=== PATIENT | male | born 1965 | race Caucasian/White ===

== ENCOUNTER 2023-11-16 19:48 | Emergency (ER) | payer BC, SELFPAY ==
[2023-11-16 19:50] VITALS: BP 141/80
--- NOTE | 2023-11-16 19:59 | ED.GENMED ---
History of Present Illness
General
Chief Complaint: Musculo-Skeletal Complaint
Time Seen by Provider: 11/16/23 19:58
Travel History
Have you had any contact with someone who has COVID-19?: No
Do you have any symptoms of coronavirus? Fever > 100 degrees, chills, cough, shortness of breath, sore throat, loss of taste or smell, muscle aches, or headache?: No
History of Present Illness
History of Present Illness:
HPI: Patient presents due to right shoulder pain. He has had arthroscopies of both shoulders in the past and states he has had loose foreign body that had to be 'cut out'. He has been having increasing pain throughout the day today. Of note he
did take down a tree yesterday with rope and that may be contributing factor. However he did not have significant pain at the time. He has tremendous difficulty with abducting at the right shoulder.
EXAM:
GENERAL: Well appearing in mild distress
HEENT: Moist oral mucosa
NEUROLOGIC: Excellent strength all extremities, no coordination deficits
PSYCHIATRIC: Appropriate mental status, normal insight and judgement
EXTREMITIES: There is markedly decreased active range of motion to abduction at the right shoulder, there is increased pain with internal rotation, there is no tenderness at the right AC joint, there is minimal discomfort to palpation of the right
bicipital region proximally
SKIN: No rash, no lesions
ED COURSE:
8 o'clock p.m.: I initially evaluated
NUMBER AND COMPLEXITY OF PROBLEMS ADDRESSED AT THE ENCOUNTER
� Chronic conditions affecting care: The patient had a left nephrectomy (donated kidney), has had shoulder surgery in the past, high blood pressure
� Acute Exacerbation and/or Progression of Chronic Illness: Has had bilateral shoulder pathology in the
� Differential Diagnosis includes: Rotator cuff disease, AC sprain, muscle strain
AMOUNT AND/OR COMPLEXITY OF DATA TO BE REVIEWED AND ANALYZED
� I performed an independent evaluation of and my interpretation is:
EKG:
CT:
X-rays: I personally viewed x-ray of the right shoulder, there is some degenerative disease and there is some increased joint space widening between the glenoid and the proximal humerus/possible slight subluxation inferiorly
Laboratory Studies:
Other:
� Review of other/old records: Old x-rays reviewed
� Clinical information was obtained by an independent historian: I spoke to the at bedside
� Prescriptions/Medications Considered but not given: Consider Dilaudid as this has helped him in the past for another issue
� Further testing considered but not performed: No clear indication for MRI at this point but will be seeing orthopedics tomorrow
RISK OF COMPLICATIONS AND/OR MORBIDITY OR MORTALITY OF PATIENT MANAGEMENT
� Social determinants of health affecting care: Lives at home
� Discussion with other providers:
� Escalation of care including admission/observation vs risk of discharge considered: The patient already took Vicodin earlier today�he has 5 mg hydrocodone at home. He has follow-up with his orthopedist at [place] tomorrow.
We will switch from Vicodin to Percocet, he has a sling at home.
Past History
Past History
ED Past Medical History: HTN, Other (DDD with herniated disc L4-L5) and Other (arthritis, kidney donor)
ED Past Surgical History: Other (kidney donor, ?vein stripping,hernia repair)
Social History
Tobacco: Former smoker
Alcohol: Occasional
Drug: None
Personal:
Living: with family
Employment: Employed
Phy Exam
Physical Exam
Physical Exam:
See HPI
Course
Orders/Labs/Results
Orders:
Orders
11/16/23 19:56
Shoulder, Right, Trauma [CR Shoulder, Trauma - Right] Urgent
Comment:
Reason For Exam: pain
11/16/23 20:24
Oxycodone/Acetaminophen [Percocet 5/325] 2 tablet PO NOW STA
Vital Signs
Initial and Last Documented VS:
Initial Vital Signs
Temp Pulse Resp BP Pulse Ox
98.2 F 63 20 141/80 97
11/16/23 19:50 11/16/23 19:50 11/16/23 19:50 11/16/23 19:50 11/16/23 19:50
Last Documented Vital Signs
Temp Pulse Resp BP Pulse Ox
98.2 F 63 20 141/80 97
11/16/23 19:50 11/16/23 19:50 11/16/23 19:50 11/16/23 19:50 11/16/23 19:50
*Critical Care Note
Total Time (30-74mins, 75-104mins- exclusive of procedures): Not Applicable
ED Attending Note
-
Portions of this chart may have been created with voice recognition software.� Occasional wrong word or��sound alike� substitutions may have occurred due to the inherent limitations of voice recognition software.
Discharge Plan
Departure
Patient Disposition: Home (Routine Discharge)
Date of Disposition: 11/16/23
Time of Disposition: 20:23
Patient with high blood pressure during this ER visit?: Yes
Discharge Problem:
Acute pain of right shoulder
Instructions: Rotator cuff injury, How to Use a Shoulder Sling
Prescriptions:
New
oxycodone-acetaminophen [Percocet] 5-325 mg tablet
1 - 2 tab PO Q8H PRN (Reason: Pain) Qty: 14 0RF
No Action
Lisinopril
10 mg PO DAILY
oxycodone-acetaminophen 5 MG/325 MG tablet
1 tab PO Q4HPRN PRN (Reason: pain) Qty: 9 0RF
diazepam [Valium] 5 mg tablet
5 mg PO TID PRN (Reason: muscle spasm) Qty: 20 0RF
Activity Restrictions/Additional Instructions:
Follow-up with your orthopedist tomorrow and take your disc with you. If you take the Percocet, you cannot take Vicodin. If you do take Percocet, consider take MiraLAX to help event constipation. I also recommend using the sling.
Interventions
Interventions:
*General Assessment Last Done: 11/16/23 19:50
*Neglect/Abuse Screening Last Done: 11/16/23 19:50
ED- Fall Risk Assessment Last Done: 11/16/23 19:50
*ED COVID-19 Vaccine History Last Done: 11/16/23 19:50
[2023-11-16] MEDS: PERCOCET 5/325 2 TABLET PO (20:31)
== END 2023-11-16 20:43 | disposition home or self-care (01) ==
LOC: EMR 19:48
PROVIDERS: EMERGENCY PHYSICIAN Emergency Medicine; FAMILY PHYSICIAN Registered Nurse
DX: M25.511 Pain in right shoulder (principal); I10 Essential (primary) hypertension; Z87.891 Personal history of nicotine dependence
CPT/HCPCS: 99283; 73030

== ENCOUNTER → 2024-01-17 06:53 | Outpatient (REF) | payer BC, SELFPAY | LOC: HWRAD 06:53 | PROVIDERS: ATTENDING PHYSICIAN Family Medicine | DX: R59.1 Generalized enlarged lymph nodes (principal) | CPT/HCPCS: 76536 ==

== ENCOUNTER 2024-01-22 19:26 | Emergency (ER) | payer BC, SELFPAY ==
[2024-01-22 19:31] VITALS: BP 120/77
--- NOTE | 2024-01-22 20:53 | ED.GENMED ---
History of Present Illness
<LASHAE Lopez - Last Filed: 01/25/24 13:12>
General
Chief Complaint: Musculo-Skeletal Complaint
Source: patient
Exam Limitations: none
Time Seen by Provider: 01/22/24 20:51
Nursing documentation reviewed up to this point in time: agreed with
Travel History
Have you had any contact with someone who has COVID-19?: No
Do you have any symptoms of coronavirus? Fever > 100 degrees, chills, cough, shortness of breath, sore throat, loss of taste or smell, muscle aches, or headache?: No
History of Present Illness
History of Present Illness:
Patient is a 58-year-old male presents to the ER complaining of right ankle pain. Patient has a history of having a right ankle replacement by Dr. Sherwin Lui in 2021. This pain started spontaneously last night. He states he is in severe pain
unable to bear any weight. He does have the chills he denies any actual new swelling. He denies any new injury. He cannot walk on this at all.
Past History
<LASHAE Lopez - Last Filed: 01/25/24 13:12>
Past History
ED Past Medical History: HTN, Other (DDD with herniated disc L4-L5) and Other (arthritis, kidney donor)
ED Past Surgical History: Other (kidney donor, ?vein stripping,hernia repair)
Social History
Tobacco: Former smoker
Alcohol: Occasional
Drug: None
Personal:
Living: with family
Employment: Employed
Review of Systems
<LASHAE Lopez - Last Filed: 01/25/24 13:12>
Review of Systems
Allergies reviewed?: Yes
All Other Systems: ROS reviewed and negative except as documented in HPI and ROS
Constitutional: Reports chills; Denies fever
Respiratory: Reports no symptoms
Cardiac: Reports no symptoms
ABD/GI: Reports no symptoms
Musculoskeletal: Reports other (Right ankle pain)
Phy Exam
<LASHAE Lopez - Last Filed: 01/25/24 13:12>
General Physical Exam
General Presentation: no apparent distress
General age: appears stated age
General Skin: warm and dry
General Habitus: normal
General Mental: alert
General Hydration: appears well hydrated
Neurological Exam
Neurological Exam: alert
[place] Coma Scale
Eye Opening: Spontaneous
Verbal Response: Oriented
Motor Response: Obeys Commands
GCS Total Score: 15
Musculoskeletal Exam
Musculoskeletal Exam: other (rle with strong pulses + swelling to right ankle no erythema no warmth tender throughout no calf tenderness or swelling )
Skin Exam
Skin Exam: normal color and warm/dry
Psychiatric Exam
Psychiatric Exam: normal mood/affect
Course
<LASHAE Lopez - Last Filed: 01/25/24 13:12>
Orders/Labs/Results
Orders:
Orders
01/22/24 19:40
Ankle, Right 3 view CR [CR Ankle - Right Min 3 Views *] Urgent
Comment:
Reason For Exam: pain, swelling
01/22/24 21:05
IV Insert/Care/Rem.- Treatment PRN
01/22/24 21:06
HYDROmorphone [Dilaudid] 1 mg IV NOW STA
01/22/24 22:16
CRP [C-Reactive Protein] Urgent
Comprehensive Metabolic Panel Urgent
01/22/24 22:17
Complete Blood Count/With Diff Urgent
Sed Rate [Erythrocyte Sed Rate] Urgent
01/23/24 00:35
HYDROmorphone [Dilaudid] 1 mg IV NOW STA
01/23/24 01:20
Lactic Acid Urgent
Blood Culture Q30M
UDAY Source: Blood/Venous
Specimen Description:
01/23/24 01:24
Blood Culture Q30M
UDAY Source: Blood/Venous
Specimen Description:
01/23/24 03:24
HYDROmorphone [Dilaudid] 1 mg .ROUTE .STK-MED ONE
01/23/24 03:27
HYDROmorphone [Dilaudid] 1 mg IV NOW STA
01/23/24 04:53
Ketorolac [Toradol] 30 mg .ROUTE .STK-MED ONE
01/23/24 04:54
Ketorolac [Toradol] 30 mg IV NOW STA
01/23/24 06:54
Case Management Consult ONCE
Case Management Consult: Other
01/23/24 08:20
HYDROmorphone [Dilaudid] 1 mg .ROUTE .STK-MED ONE
01/23/24 08:22
HYDROmorphone [Dilaudid] 1 mg IV NOW STA
01/23/24 09:18
HYDROmorphone [Dilaudid] 1 mg IV NOW STA
01/23/24 11:07
HYDROmorphone [Dilaudid] 1 mg IV NOW STA
Abnormal Lab Results
01/22/24 01/22/24
22:16 22:17
WBC 14.9 H 10^3/uL
(4.8-10.8)
MCV 79.1 L fL
(80.0-94.0)
Abs Immat Gran (auto) 0.1 H 10^3/uL
(0-0.05)
Absolute Neuts (auto) 12.4 H 10^3/uL
(1.4-6.5)
Absolute Lymphs (auto) 1.0 L 10^3/uL
(1.2-3.4)
Absolute Monos (auto) 1.4 H 10^3/uL
(0.1-0.6)
Neutrophils % 83.4 H %
(42.2-75.2)
Lymphocytes % 6.4 L %
(20.5-51.1)
Sodium 127 L mmol/L
(135-145)
Chloride 97 L mmol/L
(98-107)
BUN 25 H mg/dl
(9-20)
Glucose 134 H mg/dl
(70-99)
C-Reactive Protein 31.70 H mg/L
(0.0-10.00)
01/22/24 22:17
01/22/24 22:16
Vital Signs
Initial and Last Documented VS:
Initial Vital Signs
Temp Pulse Resp BP Pulse Ox
98.4 F 91 20 120/77 97
01/22/24 19:31 01/22/24 19:31 01/22/24 19:31 01/22/24 19:31 01/22/24 19:31
Last Documented Vital Signs
Temp Pulse Resp BP Pulse Ox
98.2 F 86 16 119/67 97
01/23/24 09:56 01/23/24 11:14 01/23/24 11:14 01/23/24 11:14 01/23/24 11:14
Swimming Pool Maintenance consulted with Physician
Swimming Pool Maintenance consulted with physician?: Yes
Name of Physician Consulted: conner
Kelilt;Tyler Roa DO - Last Filed: 01/22/24 21:44>
Orders/Labs/Results
Orders:
Orders
01/22/24 19:40
Ankle, Right 3 view CR [CR Ankle - Right Min 3 Views *] Urgent
Comment:
Reason For Exam: pain, swelling
01/22/24 21:05
IV Insert/Care/Rem.- Treatment PRN
01/22/24 21:06
HYDROmorphone [Dilaudid] 1 mg IV NOW STA
01/22/24 22:16
CRP [C-Reactive Protein] Urgent
Comprehensive Metabolic Panel Urgent
01/22/24 22:17
Complete Blood Count/With Diff Urgent
Sed Rate [Erythrocyte Sed Rate] Urgent
01/23/24 00:35
HYDROmorphone [Dilaudid] 1 mg IV NOW STA
01/23/24 01:20
Lactic Acid Urgent
Blood Culture Q30M
UDAY Source: Blood/Venous
Specimen Description:
01/23/24 01:24
Blood Culture Q30M
UDAY Source: Blood/Venous
Specimen Description:
01/23/24 03:24
HYDROmorphone [Dilaudid] 1 mg .ROUTE .STK-MED ONE
01/23/24 03:27
HYDROmorphone [Dilaudid] 1 mg IV NOW STA
01/23/24 04:53
Ketorolac [Toradol] 30 mg .ROUTE .STK-MED ONE
01/23/24 04:54
Ketorolac [Toradol] 30 mg IV NOW STA
01/23/24 06:54
Case Management Consult ONCE
Case Management Consult: Other
01/23/24 08:20
HYDROmorphone [Dilaudid] 1 mg .ROUTE .STK-MED ONE
01/23/24 08:22
HYDROmorphone [Dilaudid] 1 mg IV NOW STA
01/23/24 09:18
HYDROmorphone [Dilaudid] 1 mg IV NOW STA
01/23/24 11:07
HYDROmorphone [Dilaudid] 1 mg IV NOW STA
Abnormal Lab Results
01/22/24 01/22/24
22:16 22:17
WBC 14.9 H 10^3/uL
(4.8-10.8)
MCV 79.1 L fL
(80.0-94.0)
Abs Immat Gran (auto) 0.1 H 10^3/uL
(0-0.05)
Absolute Neuts (auto) 12.4 H 10^3/uL
(1.4-6.5)
Absolute Lymphs (auto) 1.0 L 10^3/uL
(1.2-3.4)
Absolute Monos (auto) 1.4 H 10^3/uL
(0.1-0.6)
Neutrophils % 83.4 H %
(42.2-75.2)
Lymphocytes % 6.4 L %
(20.5-51.1)
Sodium 127 L mmol/L
(135-145)
Chloride 97 L mmol/L
(98-107)
BUN 25 H mg/dl
(9-20)
Glucose 134 H mg/dl
(70-99)
C-Reactive Protein 31.70 H mg/L
(0.0-10.00)
01/22/24 22:17
01/22/24 22:16
Vital Signs
Initial and Last Documented VS:
Initial Vital Signs
Temp Pulse Resp BP Pulse Ox
98.4 F 91 20 120/77 97
01/22/24 19:31 01/22/24 19:31 01/22/24 19:31 01/22/24 19:31 01/22/24 19:31
Last Documented Vital Signs
Temp Pulse Resp BP Pulse Ox
98.2 F 86 16 119/67 97
01/23/24 09:56 01/23/24 11:14 01/23/24 11:14 01/23/24 11:14 01/23/24 11:14
<LASHAE Lopez - Last Filed: 01/25/24 13:12>
MDM/Problems Addressed
Differential Diagnosis Includes:
Not limited to infection, arthritis, gout
MDM/Problems Addressed:
Patient is a 58-year-old male status post right ankle total replacement in [address] Rivera Lui at [facility]. Patient complains of sudden pain since last night and swelling to the right ankle area. No fevers. Patient
Presents with strong pulses to right lower extremity ankle is swollen and tender throughout there is no erythema or warmth however. Case reviewed with ED physician Dr. Roa who evaluated patient labs were checked including white count which is
elevated to 14.9 CRP is elevated at 31.7 and sed rate is normal. Sodium mildly low at 127.
Case discussed with Dr. Porras our orthopedic physician who does recommend that we reach out to patient's orthopedic group at [facility]. I spoke with Dr. Jignesh Whyte ([facility] ) via tiger text who does suggest the patient be discharged
from our ER and sent to [facility] ER however after discussing with ED physician at [facility] DR Moseley recommend direct admission .
I did attempt to contact DR hWyte several additional times without response. I spoke with Yana nursing supervisor fabrication department at [facility] and patient will need to be be approved for transfer by case management which cannot happen until at least 7am.
Will keep patient here in our ER tonight until patient approved for transfer tomorrow morning. Will continue to medicate as needed. Will hold off on antibiotics. Patient and made aware of plan. Dr Adhikari at this time 0120 aware of plan.
<LASHAE Lopez - Last Filed: 01/25/24 13:12>
*Critical Care Note
Total Time (30-74mins, 75-104mins- exclusive of procedures): Not Applicable
ED Attending Note
<LASHAE Lopez - Last Filed: 01/25/24 13:12>
-
Portions of this chart may have been created with voice recognition software.� Occasional wrong word or��sound alike� substitutions may have occurred due to the inherent limitations of voice recognition software.
<Tyler Roa DO - Last Filed: 01/22/24 21:44>
ED Attending Note
Patient seen and examined by attending physician: Yes
I performed the substantive portion of visit, reviewed & personally made and approve the management plan that is documented in note by myself or SHARATH.: Yes
ED Attending Note:
I have reviewed Araceli's note.
Pt c/o right ankle pain. Pt has had a 'joint replacement' of this ankle in 2021. No fever, chills. Pt rates pain as severe and that he needs Dilaudid. He took two oxycodone earlier today w/o relief. Pt denies trauma. Pt states the ankle is
persistently swollen since the ankle surgery. No hx of gout.
Right ankle very tender palpation diffusely. No erythema or significant warmth. Pulses are brisk as is cap refill.
ankle x-ray--> read by radiology as no acute disease.
Labs ordered including crp and sed rate.
Diff dx includes osteoarthritis flare, lose hardware, septic joint (doubt).
Discharge Plan
Departure
Patient Disposition: Acute Care Hospital
Date of Disposition: 01/23/24
Time of Disposition: 09:56
Discharge Problem:
Cellulitis
Prescriptions:
No Action
Lisinopril
10 mg PO DAILY
oxycodone-acetaminophen 5 MG/325 MG tablet
1 tab PO Q4HPRN PRN (Reason: pain) Qty: 9 0RF
diazepam [Valium] 5 mg tablet
5 mg PO TID PRN (Reason: muscle spasm) Qty: 20 0RF
oxycodone-acetaminophen [Percocet] 5-325 mg tablet
1 - 2 tab PO Q8H PRN (Reason: Pain) Qty: 14 0RF
Referrals:
Fredy Rahman Jr., [Family Provider] -
Hospital Transfer
Other hospital: [facility]
I certify that the patient requires transfer: Yes
Discussed case with accepting physician: Dr. Whyte
Reason for transfer: availability of service and continuity of care PCP
Interventions
Interventions:
*Risk Screen - Suicide Last Done: 01/22/24 19:31
*General Assessment Last Done: 01/22/24 19:31
*Neglect/Abuse Screening Last Done: 01/22/24 19:31
ED- Fall Risk Assessment Last Done: 01/22/24 19:31
*ED COVID-19 Vaccine History Last Done: 01/22/24 19:31
*Nursing Disposition Last Done: 01/23/24 11:15
ED- Cardiac Assessment Last Done: 01/22/24 22:22
ED-Musculoskeletal Assessment Last Done: 01/22/24 22:23
ED- Pulmonary Assessment Last Done: 01/22/24 22:22
ED-Skin Assessment Last Done: 01/22/24 22:23
Discharge Date and Time
Discharge Date/Time: 01/23/24 11:17
Print Language: CAP[place]
[2024-01-22] MEDS: DILAUDID 1 MG IV (22:17)
[2024-01-22 22:28] VITALS: BMI 26.5
[2024-01-22 22:31] LABS: % Basophils 0.3 % (0-2); % Eosinophils 0.5 % (0-6); % Immature Granulocytes 0.3 % (0-0.5); % Lymphocytes 6.4 % (20.5-51.1); % Monocytes 9.1 % (1.7-9.3); % Neutrophils 83.4 % (42.2-75.2); Absolute Basophils 0.1 10^3/uL (0-0.2); Absolute Eosinophils 0.1 10^3/uL (0-0.7); Absolute Immature Granulocytes 0.1 10^3/uL (0-0.05); Absolute Monocytes 1.4 10^3/uL (0.1-0.6); Absolute Neutrophils 12.4 10^3/uL (1.4-6.5); Hematocrit 40.1 % (39.0-52.0); Hemoglobin 13.9 g/dL (13.0-18.0); Mean Corp Hgb Conc. 34.7 g/dL (33.0-37.0); Mean Corpuscular Hgb 27.4 pg (27.0-31.0); Mean Corpuscular Volume 79.1 fL (80.0-94.0); Mean Platelet Volume 9.4 fL (7.4-10.4); Nucleated Red Blood Cells % 0 % (-); Platelet Count 244 10^3/uL (130-400); Red Blood Cell Count 5.07 10^6/uL (4.70-6.10); Red Cell Dist. Width 13.3 % (11.5-14.5); White Blood Cell Count 14.9 10^3/uL (4.8-10.8)
[2024-01-22 22:45] LABS: Erythrocyte Sed Rate 17 mm/hour (0-20)
[2024-01-22 22:54] LABS: ALT (SGPT) 28 U/L (0-50); AST (SGOT) 33 U/L (17-59); Albumin 3.8 g/dl (3.5-5.0); Alkaline Phosphatase 125 U/L (38-126); Blood Urea Nitrogen 25 mg/dl (9-20); Calcium 9.2 mg/dl (8.4-10.2); Carbon Dioxide 27 mmol/L (22-30); Chloride 97 mmol/L (98-107); Estimated Creatinine Clearance 124 ml/min; Glucose 134 mg/dl (70-99); Potassium 4.5 mmol/L (3.5-5.1); Sodium 127 mmol/L (135-145); Total Bilirubin 0.5 mg/dl (0.2-1.3); Total Protein 6.7 g/dl (6.3-8.2); eGFR > 60.00
[2024-01-23] MEDS: DILAUDID 1 MG IV ×5 (00:38→11:09)
[2024-01-23 00:44] VITALS: BP 101/84
[2024-01-23 01:42] LABS: Lactic Acid 1.3 mmol/L (0.7-2.0)
[2024-01-23] MEDS: TORADOL 30 MG IV (04:55)
--- NOTE | 2024-01-23 08:45 | CM ---
Addendum entered by Matilda Michel RN 01/23/24 10:55:
CM was updated by ED loading unit tool setter that patient will be transferred to [facility] for a direct admission.
Original Note:
CM was consulted to assist with transfer as a direct admission to [facility]. Plan for ED UC to call nursing supervisor [employer] to discuss direct admission process at [facility]. CM will await further information.
[2024-01-23 08:59] VITALS: BP 103/65
[2024-01-23 11:14] VITALS: BP 119/67
== END 2024-01-23 11:17 | disposition short-term general hospital (02) ==
LOC: EMR 19:26
PROVIDERS: Nurse Practitioner; EMERGENCY PHYSICIAN Emergency Medicine; FAMILY PHYSICIAN Family Medicine
DX: L03.115 Cellulitis of right lower limb (principal); I10 Essential (primary) hypertension; M51.36 Other intervertebral disc degeneration, lumbar region; Z87.891 Personal history of nicotine dependence; Z96.661 Presence of right artificial ankle joint
CPT/HCPCS: 99283; 96374 ×2; 96375; 96376; 73610; 80053; 83605; 85025; 85652; 86140; 87040

== ENCOUNTER 2024-02-17 19:55 | Emergency (ER) | payer BC, SELFPAY ==
[2024-02-17 19:57] VITALS: BP 152/78
--- NOTE | 2024-02-17 20:27 | ED.GENMED ---
History of Present Illness
General
Chief Complaint: Musculo-Skeletal Complaint
Source: patient and spouse
Time Seen by Provider: 02/17/24 20:10
Travel History
Have you had any contact with someone who has COVID-19?: No
Do you have any symptoms of coronavirus? Fever > 100 degrees, chills, cough, shortness of breath, sore throat, loss of taste or smell, muscle aches, or headache?: No
History of Present Illness
History of Present Illness:
This patient is a 58-year-old male presents emergency department with neck pain that started a few days ago. At that time, he states that it felt like a 'pulsing' feeling 'like I needed a massage', described as feeling like it was in the muscles.
Since that time, the pain has gotten gradually worse such that he is very uncomfortable to move his head in any direction. This was not sudden onset and he denies associated fever, chills, nausea, vomiting, chest pain, dyspnea, numbness, tingling,
weakness, recent fall or trauma. Patient was recently diagnosed with ankle osteomyelitis and is currently receiving IV antibiotics. He has been sleeping in a hospital bed and using his scooter which is very uncomfortable and he suspects that he
has suffered neck strain as a result. He denies headache, chest pain, trouble swallowing, or other complaints.
Past History
Past History
ED Past Medical History: HTN, Other (DDD with herniated disc L4-L5) and Other (arthritis, kidney donor)
ED Past Surgical History: Other (kidney donor, ?vein stripping,hernia repair)
Social History
Tobacco: Former smoker
Alcohol: Occasional
Drug: None
Personal:
Living: with family
Employment: Employed
Phy Exam
Physical Exam
Physical Exam:
GENERAL: Alert , in no apparent distress
EYE: pupils equal and reactive
NECK: Supple, no significant adenopathy, trachea midline, no bruit, no swelling or bruising noted, no midline tenderness to palpation. He has obvious limitation of range of motion due to discomfort. No skin changes noted. He describes 'pulsing'
feeling with palpation across superior trapezius/lower neck area.
ENT: o/p clr, mmm.
CARDIAC: Regular rate and rhythm .
LUNGS: Clear breath sounds bilaterally, no acute respiratory distress, no wheezes/rales/rhonchi
ABDOMEN: Soft, without focal tenderness, no r/g, no cvat
NEUROLOGICAL: Alert and oriented, no focal neuro deficits, motor 5 out of 5, sensory intact, cranial nerves II through XII intact
SKIN: Warm and dry, skin intact.
MUSCULOSKELETAL: No edema, well perfused. Right foot in a boot
PSYCH: Normal and appropriate interaction.
Course
Orders/Labs/Results
Orders:
Orders
02/17/24 20:25
Cardiac Monitoring- Treatment ONCE
HYDROmorphone [Dilaudid] 1 mg IV NOW STA
02/17/24 20:38
CRP [C-Reactive Protein] Urgent
Complete Blood Count/With Diff Urgent
Comprehensive Metabolic Panel Urgent
ESR [Erythrocyte Sed Rate] Urgent
Blood Culture Urgent
UDAY Source: Blood/Venous
Specimen Description:
02/17/24 21:12
CT Neck W/o Iv Contrast Urgent
Comment:
Reason For Exam: NECK PAIN
diazePAM [Valium Injection] 5 mg IV NOW STA
02/17/24 22:18
HYDROmorphone [Dilaudid] 1 mg IV NOW STA
Ketorolac [Toradol] 15 mg IV NOW STA
02/18/24 00:04
Oxycodone [Roxicodone] 5 mg .ROUTE .STK-MED ONE
Abnormal Lab Results
02/17/24
20:38
WBC 12.7 H 10^3/uL
(4.8-10.8)
Hgb 12.8 L g/dL
(13.0-18.0)
Hct 37.1 L %
(39.0-52.0)
MCV 78.9 L fL
(80.0-94.0)
Abs Immat Gran (auto) 0.1 H 10^3/uL
(0-0.05)
Absolute Neuts (auto) 8.7 H 10^3/uL
(1.4-6.5)
Absolute Monos (auto) 1.1 H 10^3/uL
(0.1-0.6)
Absolute Eos (auto) 0.8 H 10^3/uL
(0-0.7)
Lymphocytes % 15.7 L %
(20.5-51.1)
Eosinophils % 6.4 H %
(0-6)
ESR 25 H mm/hour
(0-20)
Sodium 133 L mmol/L
(135-145)
BUN 30 H mg/dl
(9-20)
Glucose 122 H mg/dl
(70-99)
02/17/24 20:38
02/17/24 20:38
Vital Signs
Initial and Last Documented VS:
Initial Vital Signs
Temp Pulse Resp BP Pulse Ox
97.9 F 89 18 152/78 92
02/17/24 19:57 02/17/24 19:57 02/17/24 19:57 02/17/24 19:57 02/17/24 19:57
Last Documented Vital Signs
Temp Pulse Resp BP Pulse Ox
97.9 F 74 18 116/77 93
02/17/24 19:57 02/17/24 22:45 02/17/24 19:57 02/17/24 23:00 02/17/24 23:00
*Critical Care Note
Total Time (30-74mins, 75-104mins- exclusive of procedures): Not Applicable
Update Note
Update Note:
Patient presents to the Emergency Department with ___neck pain
Number and Complexity of Problems Addressed at the Encounter
� Chronic conditions affecting care:
� Acute Exacerbation and/or Progression of Chronic Illness:
� Differential Diagnosis includes: But not limited to arthritis, muscular strain, infection, etc. etc.
Amount and/or Complexity of Data to be Reviewed and Analyzed
� I performed an independent evaluation of and my interpretation is:
EKG:
CT: Unremarkable
Xrays:
Laboratory Studies: Slight leukocytosis with slight ESR elevation
Other:
� Review of other/old records reveals:
� Clinical information was obtained by an independent historian: who is bedside
� Prescriptions/Medications Considered but not given:
� Further testing considered but not performed:
Risk of Complications and/or Morbidity or Mortality of Patient Management
� Social determinants of health affecting care:
� Discussion with other providers (PCP, Hospitalists, Consultants, etc):
� Escalation of care including admission/observation vs risk of discharge considered: 9:16 PM Dilaudid has only helped his pain moderately. He is reporting feeling like it hurts more in the back of his neck when he swallows.
His speech is clear, he ate dinner before coming here, he is tolerating secretions, no change in voice, etc. CT ordered.
11:44 PM patient's symptoms are significantly better, he is smiling, he is able to nod yes and no, and reports feeling much better. No airway involvement voice change drooling etc. No swelling noted. Slight white blood cell count elevation noted,
may be related to pain. Nonspecific mild sed rate elevation CRP is normal. Overall, while possible I think extremely unlikely the patient has an infectious source of his neck pain such as osteo/abscess. Did discuss with patient portance of
follow-up and reasons to return to the ER. More likely I suspect patient has muscular related severe pain.
ED Attending Note
-
Portions of this chart may have been created with voice recognition software.� Occasional wrong word or��sound alike� substitutions may have occurred due to the inherent limitations of voice recognition software.
Discharge Plan
Departure
Patient Disposition: Home (Routine Discharge)
Date of Disposition: 02/17/24
Time of Disposition: 23:45
Patient with high blood pressure during this ER visit?: Yes
Condition: Good
Discharge Problem:
Acute neck pain
Instructions: Neck pain, BLOOD PRESSURE
Prescriptions:
New
diazepam [Valium] 5 mg tablet
5 mg PO BID PRN (Reason: muscle spasm) Qty: 13 0RF
oxycodone 5 mg tablet
5 mg PO Q8H PRN (Reason: Pain) Qty: 21 0RF
Rx Instructions:
5-10 MG PO Q8 PRN PAIN
No Action
lisinopril 10 mg Tablet
10 mg PO HS
sildenafil 100 mg tablet
100 mg PO DAILY PRN (Reason: ed)
oxycodone 5 mg tablet
5 mg PO Q4H PRN (Reason: moderate pain)
Patient Comments:
02/17/2024: last filled 01/28/24, 30 tabs for 7 days from [facility]#2039
cefazolin 2 gram Recon Soln
2 g IV Q8H
Patient Comments:
02/17/2024: 'Infuse entire contents of syringe (2gm) via IV infusion over 3-5 minutes once every 8 hours'
Pt recieves 5ml saline flushes before and after antibiotic and a flush of heparin (5,000u?) after dose as well.
Referrals:
Delores Jernigan MD [Family Provider] - Follow up in 2-3 days
Interventions
Interventions:
*Risk Screen - Suicide Last Done: 02/17/24 20:03
*General Assessment Last Done: 02/18/24 00:14
*Neglect/Abuse Screening Last Done: 02/17/24 20:03
ED- Fall Risk Assessment Last Done: 02/17/24 21:32
*ED COVID-19 Vaccine History Last Done: 02/18/24 00:14
*Nursing Disposition Last Done: 02/18/24 00:14
ED-Musculoskeletal Assessment Last Done: 02/17/24 21:32
Discharge Date and Time
Discharge Date/Time: 02/18/24 00:15
Print Language: DIVEHI
[2024-02-17] MEDS: DILAUDID 1 MG IV ×2 (20:36→22:24)
[2024-02-17 20:48] LABS: % Basophils 0.5 % (0-2); % Eosinophils 6.4 % (0-6); % Immature Granulocytes 0.4 % (0-0.5); % Lymphocytes 15.7 % (20.5-51.1); % Monocytes 8.8 % (1.7-9.3); % Neutrophils 68.2 % (42.2-75.2); Absolute Basophils 0.1 10^3/uL (0-0.2); Absolute Eosinophils 0.8 10^3/uL (0-0.7); Absolute Immature Granulocytes 0.1 10^3/uL (0-0.05); Absolute Monocytes 1.1 10^3/uL (0.1-0.6); Absolute Neutrophils 8.7 10^3/uL (1.4-6.5); Hematocrit 37.1 % (39.0-52.0); Hemoglobin 12.8 g/dL (13.0-18.0); Mean Corp Hgb Conc. 34.5 g/dL (33.0-37.0); Mean Corpuscular Hgb 27.2 pg (27.0-31.0); Mean Corpuscular Volume 78.9 fL (80.0-94.0); Mean Platelet Volume 9.4 fL (7.4-10.4); Nucleated Red Blood Cells % 0 % (-); Platelet Count 292 10^3/uL (130-400); Red Cell Dist. Width 13.7 % (11.5-14.5); White Blood Cell Count 12.7 10^3/uL (4.8-10.8)
[2024-02-17 20:57] LABS: Erythrocyte Sed Rate 25 mm/hour (0-20)
[2024-02-17 21:09] LABS: ALT (SGPT) 11 U/L (0-50); AST (SGOT) 32 U/L (17-59); Alkaline Phosphatase 123 U/L (38-126); Blood Urea Nitrogen 30 mg/dl (9-20); Calcium 9.2 mg/dl (8.4-10.2); Carbon Dioxide 24 mmol/L (22-30); Glucose 122 mg/dl (70-99); Total Bilirubin 0.4 mg/dl (0.2-1.3); Total Protein 7.3 g/dl (6.3-8.2); eGFR > 60.00
[2024-02-17] MEDS: VALIUM INJECTION 5 MG IV (21:15)
[2024-02-17 21:27] VITALS: BP 129/80
[2024-02-17 21:27] LABS: Chloride 98 mmol/L (98-107); Potassium 4.3 mmol/L (3.5-5.1); Sodium 133 mmol/L (135-145)
[2024-02-17 21:56] VITALS: BP 142/76
[2024-02-17 22:00] VITALS: BP 127/82
[2024-02-17] MEDS: TORADOL 15 MG IV (22:24)
[2024-02-17 23:00] VITALS: BP 116/77
== END 2024-02-18 00:15 | disposition home or self-care (01) ==
LOC: EMR 19:55
PROVIDERS: EMERGENCY PHYSICIAN Emergency Medicine; FAMILY PHYSICIAN Internal Medicine
DX: M54.2 Cervicalgia (principal); I10 Essential (primary) hypertension; M51.36 Other intervertebral disc degeneration, lumbar region; M19.90 Unspecified osteoarthritis, unspecified site; Z87.891 Personal history of nicotine dependence
CPT/HCPCS: 99284; 96374; 96375; 96376; 70490; 80053; 85025; 85652; 86140; 87040

== ENCOUNTER → 2024-03-21 07:30 | Outpatient (REF) | payer BC, SELFPAY ==
[2024-03-21 10:19] LABS: % Basophils 0.9 % (0-2); % Immature Granulocytes 0.3 % (0-0.5); % Lymphocytes 25.3 % (20.5-51.1); % Monocytes 9.2 % (1.7-9.3); % Neutrophils 57.3 % (42.2-75.2); Absolute Basophils 0.1 10^3/uL (0-0.2); Absolute Eosinophils 0.5 10^3/uL (0-0.7); Absolute Lymphocytes 1.9 10^3/uL (1.2-3.4); Absolute Monocytes 0.7 10^3/uL (0.1-0.6); Absolute Neutrophils 4.4 10^3/uL (1.4-6.5); Hematocrit 42.6 % (39.0-52.0); Hemoglobin 13.9 g/dL (13.0-18.0); Mean Corp Hgb Conc. 32.6 g/dL (33.0-37.0); Mean Corpuscular Hgb 26.8 pg (27.0-31.0); Mean Corpuscular Volume 82.2 fL (80.0-94.0); Mean Platelet Volume 9.8 fL (7.4-10.4); Nucleated Red Blood Cells % 0 % (-); Platelet Count 281 10^3/uL (130-400); Red Blood Cell Count 5.18 10^6/uL (4.70-6.10); White Blood Cell Count 7.7 10^3/uL (4.8-10.8)
[2024-03-21 10:54] LABS: C-Reactive Protein < 5.00 mg/L (0.0-10.00)
[2024-03-21 11:42] LABS: Erythrocyte Sed Rate 23 mm/hour (0-20)
== END ==
LOC: HWLAB 07:30
PROVIDERS: ATTENDING PHYSICIAN Orthopaedic Surgery Foot and Ankle Surgery; FAMILY PHYSICIAN Registered Nurse
DX: Z96.661 Presence of right artificial ankle joint (principal); T84.50XA Infection and inflammatory reaction due to unspecified internal joint prosthesis, initial encounter
CPT/HCPCS: 36415; 85025; 85652; 86140

== ENCOUNTER → 2024-03-31 11:24 | Outpatient (REF) | payer BC, SELFPAY ==
[2024-03-31 15:16] LABS: % Basophils 1.2 % (0-2); % Eosinophils 7.7 % (0-6); % Immature Granulocytes 0.1 % (0-0.5); % Monocytes 10.8 % (1.7-9.3); % Neutrophils 58.2 % (42.2-75.2); Absolute Basophils 0.1 10^3/uL (0-0.2); Absolute Eosinophils 0.6 10^3/uL (0-0.7); Absolute Lymphocytes 1.7 10^3/uL (1.2-3.4); Absolute Monocytes 0.8 10^3/uL (0.1-0.6); Absolute Neutrophils 4.4 10^3/uL (1.4-6.5); Hematocrit 41.9 % (39.0-52.0); Hemoglobin 13.7 g/dL (13.0-18.0); Mean Corp Hgb Conc. 32.7 g/dL (33.0-37.0); Mean Corpuscular Hgb 26.8 pg (27.0-31.0); Mean Platelet Volume 9.7 fL (7.4-10.4); Nucleated Red Blood Cells % 0 % (-); Platelet Count 280 10^3/uL (130-400); Red Blood Cell Count 5.11 10^6/uL (4.70-6.10); Red Cell Dist. Width 13.8 % (11.5-14.5); White Blood Cell Count 7.6 10^3/uL (4.8-10.8)
[2024-03-31 15:25] LABS: Erythrocyte Sed Rate 16 mm/hour (0-20)
== END ==
LOC: HWLAB 11:24
PROVIDERS: ATTENDING PHYSICIAN Orthopaedic Surgery Foot and Ankle Surgery; FAMILY PHYSICIAN Registered Nurse
DX: Z96.661 Presence of right artificial ankle joint (principal)
CPT/HCPCS: 36415; 85025; 85652; 86140

== ENCOUNTER 2024-04-16 10:31 | Emergency (ER) | payer BC, SELFPAY ==
[2024-04-16 10:36] VITALS: BP 122/80
--- NOTE | 2024-04-16 11:31 | EDRN ---
Marta Canseco PA in room w/pt.
[2024-04-16 11:32] VITALS: BP 117/80; BMI 28.0
--- NOTE | 2024-04-16 11:36 | ED.GENMED ---
History of Present Illness
General
Chief Complaint: Musculo-Skeletal Complaint
Source: patient
Time Seen by Provider: 04/16/24 11:16
History of Present Illness
History of Present Illness:
58-year-old male with past medical history of hypertension hyperlipidemia, recent complication of a left ankle repair that became infected, presenting to the emergency department after he was trying to prevent his father from falling down 1 stair
and his father fell backwards into him causing him to fall on the ground injuring his left ring finger and left shoulder. Patient sustained no other injuries. Denies any head injury or loss consciousness. No other concerns at this time. Patient
does note previous history of injury to both shoulders and is currently in the process of getting worked up for surgical repair of both shoulders.
Past History
Past History
ED Past Medical History: HTN, Other (DDD with herniated disc L4-L5) and Other (arthritis, kidney donor)
ED Past Surgical History: Other (kidney donor, ?vein stripping,hernia repair)
Social History
Tobacco: Former smoker
Alcohol: Occasional
Drug: None
Personal:
Living: with family
Employment: Employed
Review of Systems
Review of Systems
All Other Systems: ROS reviewed and negative except as documented in HPI and ROS
Phy Exam
Physical Exam
Physical Exam:
GENERAL: Alert , in no apparent distress
EYE: conjunctiva clear
Head: Normocephalic atraumatic
NECK: Supple,
ENT: mmm.
LUNGS: no acute respiratory distress
NEUROLOGICAL: Alert and oriented
SKIN: Warm and dry, skin intact.
MUSCULOSKELETAL: Left shoulder: No obvious deformity, erythema, edema, ecchymosis, abrasions or lacerations. Patient does allow for some active and passive range of motion but does have discomfort while doing so. There is no focal areas of
tenderness. Elbow forearm and wrist without any trauma. Left hand/ring finger does have tenderness over the PIP joint with some mild soft tissue swelling. Easily palpable radial pulse. Cap refill less than 2 seconds.
PSYCH: Normal and appropriate interaction.
Scores
Heart Failure Risk
Heart Failure Risk Score: Not Applicable
Heart Score for Chest Pain Patients
STEMI patient?: Not applicable
Withdrawal Assessment of Alcohol
Withdrawal Assessment Completed?: Not applicable
Course
Orders/Labs/Results
Orders:
Orders
04/16/24 10:38
CR Shoulder, Trauma - Left Urgent
Comment:
Reason For Exam: person fell on top of him
Finger(s)/Thumb 2 View Lt [CR Finger(s)/thumb Min 2 Vw Lt] Urgent
Comment:
Reason For Exam: pain/swelling
Indicate Which Finger:: Ring Finger
Vital Signs
Initial and Last Documented VS:
Initial Vital Signs
Temp Pulse Resp BP Pulse Ox
97.7 F 82 17 122/80 95
04/16/24 10:36 04/16/24 10:36 04/16/24 10:36 04/16/24 10:36 04/16/24 10:36
Last Documented Vital Signs
Temp Pulse Resp BP Pulse Ox
97.7 F 77 16 117/80 98
04/16/24 10:36 04/16/24 11:32 04/16/24 11:32 04/16/24 11:32 04/16/24 11:32
MDM/Problems Addressed
Differential Diagnosis Includes:
Sprain, contusion, fracture, less concern for dislocation
MDM/Problems Addressed:
58-year-old male present emergency department for evaluation after he tried to catch his father from falling but instead caused him to fall on the ground himself injuring his left shoulder and ring finger. X-rays ordered from triage. There is no
evidence for shoulder fracture or dislocation on the left. There is a questionable old avulsive injury on the left index finger. Patient has a sling at home he states he can use for comfort. He was provided with a finger splint to be used as
needed. Stable for discharge home and outpatient management.
*Radiology
Radiology exam reviewed: preliminary read by ED provider (No acute fracture)
*Pulse Oximetry
Patient hypoxic: no
*Critical Care Note
Total Time (30-74mins, 75-104mins- exclusive of procedures): Not Applicable
ED Attending Note
-
Portions of this chart may have been created with voice recognition software.� Occasional wrong word or��sound alike� substitutions may have occurred due to the inherent limitations of voice recognition software.
Discharge Plan
Departure
Patient Disposition: Home (Routine Discharge)
Date of Disposition: 04/16/24
Time of Disposition: 11:36
Patient with high blood pressure during this ER visit?: No
Discharge Problem:
Left shoulder pain, Avulsion fracture of middle phalanx of finger
Instructions: Finger Fracture ED
Prescriptions:
No Action
lisinopril 10 mg Tablet
10 mg PO HS
sildenafil 100 mg tablet
100 mg PO DAILY PRN (Reason: ed)
oxycodone 5 mg tablet
5 mg PO Q4H PRN (Reason: moderate pain)
Patient Comments:
02/17/2024: last filled 01/28/24, 30 tabs for 7 days from [facility]#2039
cefazolin 2 gram Recon Soln
2 g IV Q8H
Patient Comments:
02/17/2024: 'Infuse entire contents of syringe (2gm) via IV infusion over 3-5 minutes once every 8 hours'
Pt recieves 5ml saline flushes before and after antibiotic and a flush of heparin (5,000u?) after dose as well.
diazepam [Valium] 5 mg tablet
5 mg PO BID PRN (Reason: muscle spasm) Qty: 13 0RF
oxycodone 5 mg tablet
5 mg PO Q8H PRN (Reason: Pain) Qty: 21 0RF
Rx Instructions:
5-10 MG PO Q8 PRN PAIN
Referrals:
Speranger,Chaz, [employer] [Family Provider] -
Interventions
Interventions:
*Risk Screen - Suicide Last Done: 04/16/24 11:32
*General Assessment Last Done: 04/16/24 11:32
*Neglect/Abuse Screening Last Done: 04/16/24 11:32
ED- Fall Risk Assessment Last Done: 04/16/24 11:38
*ED COVID-19 Vaccine History Last Done: 04/16/24 11:32
*Nursing Disposition Last Done: 04/16/24 11:42
ED-Musculoskeletal Assessment Last Done: 04/16/24 11:32
Discharge Date and Time
Discharge Date/Time: 04/16/24 11:42
Print Language: ARMENIAN
== END 2024-04-16 11:42 | disposition home or self-care (01) ==
LOC: EMR 10:31
PROVIDERS: EMERGENCY PHYSICIAN Emergency Medicine; FAMILY PHYSICIAN Registered Nurse
DX: M25.512 Pain in left shoulder (principal); S62.625A Displaced fracture of middle phalanx of left ring finger, initial encounter for closed fracture; W19.XXXA Unspecified fall, initial encounter; Y93.F9 Activity, other caregiving; I10 Essential (primary) hypertension; M51.36 Other intervertebral disc degeneration, lumbar region; M19.90 Unspecified osteoarthritis, unspecified site; E78.5 Hyperlipidemia, unspecified; Z52.4 Kidney donor; Z87.891 Personal history of nicotine dependence; Z88.0 Allergy status to penicillin
CPT/HCPCS: 99284; 29130; 73030; 73140

== ENCOUNTER → 2024-06-09 07:29 | Outpatient (REF) | payer BC, SELFPAY ==
[2024-06-09 10:19] LABS: ALT (SGPT) 16 U/L (0-50); AST (SGOT) 26 U/L (17-59); Albumin 4.2 g/dl (3.5-5.0); Alkaline Phosphatase 105 U/L (38-126); Blood Urea Nitrogen 27 mg/dl (9-20); Calcium 9.7 mg/dl (8.4-10.2); Carbon Dioxide 27 mmol/L (22-30); Chloride 102 mmol/L (98-107); Glucose 114 mg/dl (70-99); HDL Cholesterol 65 mg/dl; LDL Cholesterol, Calculated 119 mg/dl; Potassium 4.8 mmol/L (3.5-5.1); Sodium 141 mmol/L (135-145); Total Bilirubin 0.5 mg/dl (0.2-1.3); Total Cholesterol 205 mg/dl (50-199); Total Protein 6.9 g/dl (6.3-8.2); Triglyceride 106 mg/dl (10-149); Very Low Density Lipoprotein 21 mg/dl (0-30); eGFR > 60.00
[2024-06-09 10:44] LABS: PSA, Total - Screen 1.55 ng/ml (0.0-4.0)
[2024-06-09 11:00] LABS: Glycohemoglobin (HgbA1c) 5.8 % (4.0-5.6)
== END ==
LOC: HWLAB 07:29
PROVIDERS: ATTENDING PHYSICIAN Registered Nurse
DX: Z00.00 Encounter for general adult medical examination without abnormal findings (principal); I10 Essential (primary) hypertension; R73.01 Impaired fasting glucose; E78.2 Mixed hyperlipidemia; Z12.5 Encounter for screening for malignant neoplasm of prostate
CPT/HCPCS: 36415; 80053; 80061; 83036; 84443; G0103